=== PATIENT | female | born 1975 | race African-American/Black ===

== ENCOUNTER → 2021-10-11 | Emergency (ER) | payer OTHER ==
[~2021-10-11] VITALS: Ht 162.6 cm; Wt 83.9 kg
[~2021-10-11] MED LIST: NOHOMEMEDICATIONS
--- NOTE | ~2021-10-11 | EMS ---
[facility] [address] [place] [address] EMS Patient Care Report Name: STEVE DIAZ Room #: REG CEDRICK Chris#: [id number] Admission: 10/11/21 Attend Phys: Discharge: Date of : 73 Report #: [id number] THIS REPORT FOR: //name// Report Transmitted: 10/12/2021 13:13 EMS Care Summary [place], [place]/[facility] Incident [id number] @ 10/11/2021 01:00 Incident Location [address] [place] [address] Patient STEVE DIAZ Female, 46 Years 1975 Patient Address [address] [place] [address] Patient History Diabetes,Bipolar II Disorder,Schizophrenia,Depression,Anxiety,Post Traumatic Stress Disorder (PTSD),Paranoid Schizophrenia, Patient Allergies No known allergies, Patient Medications Melatonin, Insulin, None Reported, Risperdal, Chief Complaint BACK PAIN CHRONIC Disposition Transported No Lights/[place] Dispatch Reason Sick Person Transported To [facility] Narrative DISPATCHED TO STAGE FOR POLICE ON A SICK. ARRIVED ON SCENE TO FIND OFFICERS STANDING ON THE FRONT ROOM WITH FEMALE PATIENT WHO SAID SHE IS HAVING CHRONIC [facility] [address] [place] [address] EMS Patient Care Report Name: STEVE DIAZ Room #: REG Dot#: [id number] Admission: 10/11/21 Attend Phys: Discharge: Date of : 73 Report #: [id number] BACK PAIN, ANXIETY, AND EAR PAIN FROM MOLD THAT IS IN HER HOME. PATIENT SAID SHE WOULD LIKE TO BE SEEN AT THE HOSPITAL TONIGHT FOR THIS. WHILE WAITING FOR CHILD'S CAREGIVER TO ARRIVE PATIENT CONTINOUSLY TALKED MAKING IRRATIONAL STATEMENTS. UPON ARRIVAL OF CAREGIVER SHE WAS ASSISTED IN WALKING TO THE AMBULANCE, SEATED ON THE COT, SECURED WITH STRAPS, AND HER VITALS WERE OBTAINED. SHE WAS TRANSPORTED TO THE HOSPITAL WITH VITALS MONITORED. UPON ARRIVAL AT THE HOSPITAL PATIENT WAS MOVED INTO THE ED ON THE COT AND ASSISTED IN MOVING OVER TO THE HOSPITAL BED. PATIENT CARE WAS TURNED OVER TO ED NURSING STAFF. Initial Vitals @01:35P: 110,BP: 144/76,CO: 2,SpO2: 97, @01:41P: 99,BP: 149/70,CO: 2,SpO2: 96, @01:46P: 99,R: 16,BP: 131/85,Pain: 6/10,GCS: 15,SpO2: 96,Revised Trauma: 12, @01:34P: 114,R: 16,BP: 173/98,Pain: 6/10,GCS: 15,SpO2: 100,Revised Trauma: 12, Assessments @01:14MENTAL:Other,Event Oriented,Place Oriented,Time Oriented,Person Oriented,SKIN:HEENT:Head/Face: No Abnormalities,Neck/Airway: No Abnormalities,LUNG SOUNDS:General: No Abnormalities,Left Upper: No Abnormalities,Right Upper: No Abnormalities,Left Lower: No Abnormalities,Right Lower: No Abnormalities,ABDOMEN:General: No Abnormalities,Left Upper: No Abnormalities,Right Upper: No Abnormalities,Left Lower: No Abnormalities,Right Lower: No Abnormalities,PELVIS//GI:No Abnormalities,EXTREMITIES:Capillary Refill: Left Upper: < 2 Sec,Left Arm: No Abnormalities,Right Arm: No Abnormalities,Left Leg: No Abnormalities,Right Leg: No Abnormalities,PULSE:Radial: 2+ Normal,NEURO:No Abnormalities, Impression Back Pain Procedures @01:14 ALS Assessment Response: UnchangedSucceeded Timeline 00:57,Call Received 00:57,Dispatch Notified 01:00,Dispatched 01:,En Route 01:12,On Scene 01:14,At Patient 01:14,ALS Assessment,Response: UnchangedSucceeded, 01:34,BP: 173/98 M,PULSE: 114,RR: 16 R,SPO2: 100 Ox,ETCO2: ,BG: ,PAIN: 6,GCS: 15, 01:35,BP: 144/76 M,PULSE: 110,RR: R,SPO2: 97 Ox,ETCO2: ,BG: ,PAIN: ,GCS: , [address] [address] EMS Patient Care Report Name: STEVE DIAZ Room #: INDU Chris#: [id number] Admission: 10/11/21 Attend Phys: Discharge: Date of : 73 Report #: [id number] 01:38,Depart Scene 01:41,BP: 149/70 M,PULSE: 99,RR: R,SPO2: 96 Ox,ETCO2: ,BG: ,PAIN: ,GCS: , 01:46,BP: 131/85 M,PULSE: 99,RR: 16 R,SPO2: 96 Ox,ETCO2: ,BG: ,PAIN: 6,GCS: 15, 01:50,At Destination 02:00,Call Closed Disclaimer v1.1 Copyright 2021 [employer] This EMS Care Summary contains data elements from the applicable legal record (which may be displayed differently). It is designed to provide pertinent information for the following purposes: continuity of care, clinical quality, and state data reporting. The complete legal record is available to ED staff and administrators of the receiving hospital in [employer] Patient Tracker. All data is provided "as is."
--- NOTE | ~2021-10-11 | EMS ---
[facility] [address] [place] [address] EMS Patient Care Report Name: STEVE DIAZ Room #: REG CEDRICK Chris#: [id number] Admission: 10/11/21 Attend Phys: Discharge: Date of : 73 Report #: [id number] THIS REPORT FOR: //name// Report Transmitted: 10/12/2021 14:42 EMS Care Summary [place], [place]/[facility] Incident [id number] @ 10/11/2021 01:00 Incident Location [address] [place] [address] Patient STEVE DIAZ Female, 46 Years 1975 Patient Address [address] [place] [address] Patient History Diabetes,Bipolar II Disorder,Schizophrenia,Depression,Anxiety,Post Traumatic Stress Disorder (PTSD),Paranoid Schizophrenia, Patient Allergies No known allergies, Patient Medications Melatonin, Insulin, None Reported, Risperdal, Chief Complaint BACK PAIN CHRONIC Disposition Transported No Lights/[place] Dispatch Reason Sick Person Transported To [facility] Narrative DISPATCHED TO STAGE FOR POLICE ON A SICK. ARRIVED ON SCENE TO FIND OFFICERS STANDING ON THE FRONT ROOM WITH FEMALE PATIENT WHO SAID SHE IS HAVING CHRONIC [facility] [address] [place] [address] EMS Patient Care Report Name: STEVE DIAZ Room #: REG Dot#: [id number] Admission: 10/11/21 Attend Phys: Discharge: Date of : 73 Report #: [id number] BACK PAIN, ANXIETY, AND EAR PAIN FROM MOLD THAT IS IN HER HOME. PATIENT SAID SHE WOULD LIKE TO BE SEEN AT THE HOSPITAL TONIGHT FOR THIS. WHILE WAITING FOR CHILD'S CAREGIVER TO ARRIVE PATIENT CONTINOUSLY TALKED MAKING IRRATIONAL STATEMENTS. UPON ARRIVAL OF CAREGIVER SHE WAS ASSISTED IN WALKING TO THE AMBULANCE, SEATED ON THE COT, SECURED WITH STRAPS, AND HER VITALS WERE OBTAINED. SHE WAS TRANSPORTED TO THE HOSPITAL WITH VITALS MONITORED. UPON ARRIVAL AT THE HOSPITAL PATIENT WAS MOVED INTO THE ED ON THE COT AND ASSISTED IN MOVING OVER TO THE HOSPITAL BED. PATIENT CARE WAS TURNED OVER TO ED NURSING STAFF. Initial Vitals @01:35P: 110,BP: 144/76,CO: 2,SpO2: 97, @01:41P: 99,BP: 149/70,CO: 2,SpO2: 96, @01:46P: 99,R: 16,BP: 131/85,Pain: 6/10,GCS: 15,SpO2: 96,Revised Trauma: 12, @01:34P: 114,R: 16,BP: 173/98,Pain: 6/10,GCS: 15,SpO2: 100,Revised Trauma: 12, Assessments @01:14MENTAL:Person Oriented,Time Oriented,Place Oriented,Event Oriented,Other,SKIN:HEENT:Head/Face: No Abnormalities,Neck/Airway: No Abnormalities,LUNG SOUNDS:General: No Abnormalities,Left Upper: No Abnormalities,Right Upper: No Abnormalities,Left Lower: No Abnormalities,Right Lower: No Abnormalities,ABDOMEN:General: No Abnormalities,Left Upper: No Abnormalities,Right Upper: No Abnormalities,Left Lower: No Abnormalities,Right Lower: No Abnormalities,PELVIS//GI:No Abnormalities,EXTREMITIES:Capillary Refill: Left Upper: < 2 Sec,Left Arm: No Abnormalities,Right Arm: No Abnormalities,Left Leg: No Abnormalities,Right Leg: No Abnormalities,PULSE:Radial: 2+ Normal,NEURO:No Abnormalities, Impression Back Pain Procedures @01:14 ALS Assessment Response: UnchangedSucceeded Timeline 00:57,Call Received 00:57,Dispatch Notified 01:00,Dispatched 01:,En Route 01:12,On Scene 01:14,At Patient 01:14,ALS Assessment,Response: UnchangedSucceeded, 01:34,BP: 173/98 M,PULSE: 114,RR: 16 R,SPO2: 100 Ox,ETCO2: ,BG: ,PAIN: 6,GCS: 15, 01:35,BP: 144/76 M,PULSE: 110,RR: R,SPO2: 97 Ox,ETCO2: ,BG: ,PAIN: ,GCS: , [address] [address] EMS Patient Care Report Name: STEVE DIAZ Room #: INDU Chris#: [id number] Admission: 10/11/21 Attend Phys: Discharge: Date of : 73 Report #: [id number] 01:38,Depart Scene 01:41,BP: 149/70 M,PULSE: 99,RR: R,SPO2: 96 Ox,ETCO2: ,BG: ,PAIN: ,GCS: , 01:46,BP: 131/85 M,PULSE: 99,RR: 16 R,SPO2: 96 Ox,ETCO2: ,BG: ,PAIN: 6,GCS: 15, 01:50,At Destination 02:00,Call Closed Disclaimer v1.1 Copyright 2021 [employer] This EMS Care Summary contains data elements from the applicable legal record (which may be displayed differently). It is designed to provide pertinent information for the following purposes: continuity of care, clinical quality, and state data reporting. The complete legal record is available to ED staff and administrators of the receiving hospital in [employer] Patient Tracker. All data is provided "as is."
[2021-10-11 02:45] VITALS: BP 155/92
== END ==
LOC: ER 01:52 → EDBD 01:52
DX: M54.50 Low back pain, unspecified (principal); E11.65 Type 2 diabetes mellitus with hyperglycemia; R41.0 Disorientation, unspecified; F20.9 Schizophrenia, unspecified; F31.9 Bipolar disorder, unspecified; Z85.3 Personal history of malignant neoplasm of breast